=== PATIENT | female | born 1990 | race Caucasian/White ===

== ENCOUNTER 2020-08-20 15:07 | Emergency (ER) | payer MEDICAID ==
[2020-08-20] MEDS ORDERED: Fluorescein 1 MG Ophth Strip EYELF ONE (17:50)
[2020-08-20] MEDS ORDERED: Tetracaine HCl/PF 0.5% 4 ML Bottle EYELF ONE (17:50)
[2020-08-20] MEDS ORDERED: Ibuprofen 400 MG Tab PO ONE (17:51)
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
[2020-08-20] MEDS ORDERED: Gentamicin 0.3% Ophth Soln 5 ML Bottle EYELF ONE (18:39)
[2020-08-20] MEDS ORDERED: Gentamicin 0.3% Ophth Soln 5 ML Bottle EYELF SCH (21:00)
== END 2020-08-20 18:51 | disposition home or self-care (01) ==
LOC: DL.ED 15:07
DX: S05.02XA Injury of conjunctiva and corneal abrasion without foreign body, left eye, initial encounter (principal); Z72.0 Tobacco use; Y04.2XXA Assault by strike against or bumped into by another person, initial encounter
CPT/HCPCS: 99283; A9270